=== PATIENT | male | born 1960 | race Caucasian/White ===

== ENCOUNTER 2018-12-23 20:38 | Emergency (ER) | payer OTHER ==
[~2018-12-23] VITALS: Ht 172.7 cm; Wt 68.0 kg
[2018-12-23 20:46] VITALS: Ht 172.7 cm; Wt 68.0 kg
[2018-12-23 23:25] VITALS: BP 127/86
== END 2018-12-23 23:25 | disposition home or self-care (01) ==
LOC: ED 20:38
DX: S20.212A Contusion of left front wall of thorax, initial encounter (principal); S06.9X9A Unspecified intracranial injury with loss of consciousness of unspecified duration, initial encounter; I10 Essential (primary) hypertension; E11.9 Type 2 diabetes mellitus without complications; Y04.8XXA Assault by other bodily force, initial encounter; Y93.89 Activity, other specified; Y92.89 Other specified places as the place of occurrence of the external cause; Y99.8 Other external cause status
CPT/HCPCS: 82962; J1885; J2270; J2405; J7030